=== PATIENT | female | born 1955 | race Caucasian/White ===

== ENCOUNTER 2019-03-31 09:02 | Day surgery (SDC) | payer MEDICARE, MEDICAID ==
[~2019-03-31] VITALS: Ht 165.1 cm; Wt 70.5 kg
--- NOTE | 2019-03-31 09:49 | PREAC ---
Date/Time of Note Date/Time of Note DATE: 03/31/19 TIME: 09:48 Anesthesia Eval and Record Evaluation Time Pre-Procedure Interview DATE: 03/31/19 TIME: 09:48 Age 63 Sex female NPO: 8 hrs Preoperative diagnosis screening Planned procedure colonoscopy Past Medical History Past Medical History: Includes Cardio: HTN, Dyslipidemia Endo: Diabetes Surgery & Anesthesia Issues No known issue Meds Anticoagulation: No Beta Dwayne within 24 hr: No Reason Beta Dwayne not given: Pt. not on B-Dwayne Meds reviewed: Yes Allergies Allergies Reviewed: Yes Labs/Studies Labs Reviewed: Reviewed by anesthesiologist test: N/A Studies: ECG (n/a), CXR (n/a) Pre-procedure Exam Airway: Adequate mouth opening Mallampati: Mallampati I Teeth: Normal Lung: Normal Heart: Normal ASA Physical Status ASA physical status: 2 Emergency: None Planned Anesthetic General/MAC: MAC Planned Pain Management Parenteral pain med Pre-operative Attestations Prior to commencing anesthesia and surgery, the patient was re-evaluated, there was verification of: *The patient's identity *The results of appropriate recent lab work and preoperative vital signs *The above evaluation not changing prior to induction *Anesthetic plan, risk benefits, alternative and complications discussed with patient/family; questions answered; patient/family understands, accepts and wishes to proceed. LATISHA TORREZ MD March 31, 2019 09:49
[2019-03-31] MEDS ORDERED: [UNRECOGNIZED DRUG - REMARK] (09:51)
[2019-03-31] MEDS ORDERED: IBUPROFEN (09:51)
[2019-03-31] MEDS ORDERED: JANUMET (09:51)
[2019-03-31] MEDS ORDERED: ATORVASTATIN (09:51)
[2019-03-31] MEDS ORDERED: LOSARTAN (09:51)
[2019-03-31] MEDS ORDERED: FENTAnyl 50 MCG/ML VIAL ONE (09:52)
[2019-03-31] MEDS ORDERED: PROPOFOL 20 ML ONE ×2 (09:52→10:46)
[2019-03-31 09:54] VITALS: Ht 165.1 cm; Wt 70.5 kg
[2019-03-31 10:00] VITALS: BP 127/74; PULSE 81; RESP 12
[2019-03-31] MEDS ORDERED: ONDANSETRON 4 MG INJ IV PRN (10:00)
[2019-03-31] MEDS ORDERED: FENTAnyl 50 MCG/ML VIAL IV PRN (10:00)
[2019-03-31 11:25] VITALS: BP 131/61; PULSE 84; RESP 18
--- NOTE | 2019-03-31 13:07 | PAC ---
Date/Time of Note Date/Time of Note DATE: 03/31/19 TIME: 13:07 Post-Anesthesia Notes Post-Anesthesia Note Last documented vital signs Vital Signs Date Temp Pulse Resp B/P (MAP) Pulse Ox O2 O2 Flow FiO2 Time Delivery Rate 03/31/19 97.5 84 18 131/61 94 Room Air 11:25 (84) 03/31/19 97.5 10:00 Activity: WNL Respiratory function: WNL Cardiovascular function: WNL Mental status: Baseline Pain reasonably controlled: Yes Hydration appropriate: Yes Nausea/Vomiting absent: No LATISHA TORREZ MD March 31, 2019 13:07
== END 2019-03-31 12:58 | disposition home or self-care (01) ==
LOC: GIL 09:02
PROVIDERS: ATTEND Internal Medicine Gastroenterology
DX: Z12.11 Encounter for screening for malignant neoplasm of colon (principal); K64.8 Other hemorrhoids; D12.3 Benign neoplasm of transverse colon; I10 Essential (primary) hypertension; E11.9 Type 2 diabetes mellitus without complications
CPT/HCPCS: 45385; 82962; 88305; J3010